=== PATIENT | female | born 1950 | race Caucasian/White ===

== ENCOUNTER → 2016-11-02 | Outpatient (CLI) | payer MEDICARE, OTHER ==
[~2016-11-02] MED LIST: AMARYL4 MG PO; AMBIEN 10MG10 M1 PO; AMBIEN 10MG10 MG PO; ASPIRIN E.C. 8181 MG PO; ASTELIN NASAL S34 ML NAS; ASTELIN137 MCG/AC NS; BRILINTA90 MG PO; CARDIZEM LA120 MG PO; CLARITIN; FISH OIL1000 MG PO; FLAX OIL1000 MG PO; IBU800 M1 PO; LASIX 20MG TABL20 MG PO; LIPITOR20 MG PO; LOPRESSOR 225 MG/TAB PO; LORTAB 5/500 501 TAB PO; MAVIK1 MG PO; MELATONIN5 M1 PO; MELATONIN5 MG; MEPEREDINE50 MG PO; MULTIPLE VITAMI1 CAP PO; MULTIVITAMIN FO1 CAP PO; NAPROSYN500 MG PO; NITROSTAT0.4 MG/TAB SL; PLAVIX 75MG TAB75 MG PO; PRAVACHOL 40MG40 MG PO; PRINIVIL2.5 MG PO; TARKA 4 MG-2401 TER PO; VESICARE5 MG PO; XANAX 0.5MG0.5 MG PO; XANAX0.25 MG PO; ZESTRIL 10MG10 MG PO; ZOFRAN 4MG T4 MG/TAB PO
== END ==
LOC: COL.RAD 08:07
DX: I70.1 Atherosclerosis of renal artery (principal); I70.209 Unspecified atherosclerosis of native arteries of extremities, unspecified extremity
CPT/HCPCS: Q9967

== ENCOUNTER → 2017-03-16 | Outpatient (REF) | LOC: ZLAB.WCH 18:15 | DX: Z01.89 Encounter for other specified special examinations (principal) ==

== ENCOUNTER 2022-09-03 02:22 | Inpatient (IN) | payer MEDICARE, OTHER ==
[~2022-09-03] VITALS: Ht 172.7 cm; Wt 88.1 kg
[2022-09-03] VITALS (862 sets, daily range): BP systolic 103–190; BP diastolic 46–84; PULSE 61–109; TEMP 97.1–99.6; O2SAT 74–100
[~2022-09-03 02:22] MED LIST changes: +BENADRYL25 M2 PO; +CALCIUM 600MG+D1 TAB PO; +CLARITIN 1010 MG/TAB PO; +CRESTOR5 MG PO; +FOSAMAX 70MG TA70 MG PO; +K2-4545 MCG PO; +PRINIVIL5 MG PO; +TYLENOL 500MG500 MG PO
[2022-09-03 03:17] LABS: ARTERIAL BLD GAS O2 SATURATION 98.6 % (92-100); ARTERIAL BLD GAS TCO2 CT 28.6; ARTERIAL BLOOD GAS BASE EXCESS 3.2 (-2-2); ARTERIAL BLOOD GAS HCO3 27.4 meq/L (22-26); ARTERIAL BLOOD GAS PCO2 40.2 mmHg (35-45); ARTERIAL BLOOD GAS pH 7.45 (7.35-7.45)
[2022-09-03 03:26] LABS: HEMATOCRIT 43.8 % (37.0-47.0); HEMOGLOBIN 14.4 g/dl (12.5-16.0); MEAN CELL VOLUME 98 fl (80.0-100.0); MEAN CORPUSCULAR HEMOGLOBIN 32 pg (27-31); MEAN CORPUSCULAR HGB CONC 33 g/dl (33.0-37.0); PLATELET COUNT 327 K/mm3 (130-400); RED BLOOD COUNT 4.49 M/mm3 (4.10-5.30); REDCELL DISTRIBUTION WIDTH-CV 12.7 % (11.5-14.5)
[2022-09-03 03:32] LABS: PROTHROMBIN TIME 11.5 SECONDS (9.7-12.8)
[2022-09-03 03:46] LABS: BAND 8 % (0-10); HYPOCHROMIA 1+; LYMPHOCYTE 14 % (20.0-51.0); NEUTROPHILS 77 % (42.0-75.2); PLATELET ESTIMATE NORMAL (NORMAL)
[2022-09-03 03:48] LABS: ALBUMIN 2.6 gm/dL (3.4-4.8); BILIRUBIN,TOTAL 0.3 mg/dL (0.2-1.2); CALCIUM 11.7 mg/dL (8.4-10.2); CREATININE, serum 0.8 mg/dL (0.57-1.11); PHOSPHOROUS 8.2 mg/dL (2.3-4.7); POTASSIUM 5.4 mmol/L (3.5-4.5); TOTAL PROTEIN 4.8 gm/dL (6.2-8.1)
[2022-09-03] MEDS ORDERED: NICODERM C21 MG/PATC TD (04:59)
[2022-09-03] MEDS ORDERED: LASIX 20MG TABL20 MG PO (04:59)
[2022-09-03 05:25] LABS: ARTERIAL BLD GAS O2 SATURATION 94.9 % (92-100); ARTERIAL BLOOD GAS HCO3 27.1 meq/L (22-26); ARTERIAL BLOOD GAS PCO2 29.3 mmHg (35-45); ARTERIAL BLOOD GAS pH 7.58 (7.35-7.45)
--- NOTE | 2022-09-03 05:30 | NUR ---
72 yo female admitted for further care and management of acute respiratory failure with additional concerns for sepsis of unclear etiology. ht 172.7 cm wt 86.4 kg SCr 0.8 with estimated CrCl >60 ml/min half life 11.4 hours Plan: Will give an initial loading dose of vancomycin 1750 mg x1 (20.3 mg/kg); followed by a maintenance regimen of vancomycin 1250 mg q12h to target a goal trough of 15-20 mcg/ml. Will follow patient's renal function, micro data, and vancomycin levels as indicated to assess for any necessary changes to regimen. Thank you for this dosing consult.
--- NOTE | 2022-09-03 05:44 | NUR ---
LEVOPHED DRIP INITIALLY AT 0.16 MCG/KG/MIN WHEN ARRIVED FROM ER. INITIAL BP 190/84 WITH THIS RATE. DECREASED PER TITRATIONS OF 0.03 DOWN TO 0.04 MCG/KG/MIN WITH FINAL BP OF 103/59 AT 0500.
[2022-09-03 05:52] LABS: MUCOUS Present (NOT PRESENT); SQUAMOUS EPITHELIAL 0-2 /hpf (0-10); URINE BACTERIA Rare /hpf (NONE SEEN)
[2022-09-03 05:54] LABS: URINE APPEARANCE Hazy (CLEAR/HAZY); URINE BLOOD 2+ (NEGATIVE); URINE COLOR Yellow (YELLOW); URINE GLUCOSE Negative (NEGATIVE); URINE KETONE TRACE (NEGATIVE); URINE NITRATE Negative (NEGATIVE); URINE PROTEIN(semi-quant) 3+ (NEGATIVE)
--- NOTE | 2022-09-03 07:00 | NUR ---
0700 INTRAOSSEOUS PLACEMENT ON LEFT PROXIMAL TIBIA. PLACED BY EMS. NO LONGER INDICATED DUE TO CENTRAL LINE PLACEMENT. INTRAOSSEOUS REMOVED. NO COMPLICATION. NEED INTACT. MINIMAL BLEEDING WITH PRESSURE DRESSING APPLIED.
--- NOTE | 2022-09-03 08:03 | NUR ---
0700 BEDSIDE REPORT GIVEN. PATIENT INTUBATED AND SEDATED. PATIENT HAS A RIGHT FEMORAL CENTRAL LINE AND ARTERIAL LINE WHICH HAS NOT BEEN SET UP. PATIENT ALSO HAS A SANDERS AND OG TUBE IN PLACE.
--- NOTE | 2022-09-03 08:38 | NUR ---
Patient currently intubated and sedated. SW attended rounding with patients RN, hospitalist and patients , Adolfo present at bedside. Patient recently diagnosed with cancer on 08/30. Adolfo verbalizes that the patient would not want to be on life support and would like to talk with his son about withdrawing care.
--- NOTE | 2022-09-03 09:07 | NUR ---
Per Adolfo, contact has been made with the patients children are currently in [place] and are 10 hours away. Adolfo states that they are getting their things together and are coming to [place]. Once here they are proceed with withdrawing care.
--- NOTE | 2022-09-03 09:15 | NUR ---
Dr. Thomas Saavedra making unit rounds. Patient's spouse indicated that patient would not want to be on a ventilator or in a vegetative state. Patient's spouse (Adolfo) made multiple phone calls to his stepchildren regarding their mother's condition. Discussed visiting guidelines; children are traveling from [place] & [facility] Adolfo states that he does not want his to suffer & struggle. May want to palliatively extubated at some point. Call to [facility] for referral of ventilated patient with potential withdraw of ventilator in near future. Instructed to call if patient's neuro status declines, GCS decreases, reflexes become absent or prior to withdrawing ventilator. [facility] #[id number].
[2022-09-03 09:59] LABS: CALCIUM 9.9 mg/dL (8.4-10.2); CREATININE, serum 0.67 mg/dL (0.57-1.11); POTASSIUM 3.5 mmol/L (3.5-4.5)
[2022-09-03 12:19] LABS: ARTERIAL BLD GAS O2 SATURATION 95.3 % (92-100); ARTERIAL BLD GAS TCO2 CT 27.9; ARTERIAL BLOOD GAS BASE EXCESS 4.3 (-2-2); ARTERIAL BLOOD GAS HCO3 26.8 meq/L (22-26); ARTERIAL BLOOD GAS PCO2 33.6 mmHg (35-45); ARTERIAL BLOOD GAS PO2 74.6 mmHg (80-100); ARTERIAL BLOOD GAS pH 7.52 (7.35-7.45)
--- NOTE | 2022-09-03 20:00 | NUR ---
Patient assessment completed. Patient is currently intubated with her at the bedside. Patients current ventilator settings are - AC mode, FiO2 45%, PEEP 5, Tidal volume 450. Patient tolerating ventilator. Patient shows minimal response. Patient slightly withdrawals from painful stimuli - such as turning. Vital signs are stable. Patient repositioned in bed and covered with a bed sheet. is still awaiting distant family to arrive.
--- NOTE | 2022-09-03 22:06 | NUR ---
Patient continue to shows minimal response. Decreased sedation to assess response level.
--- NOTE | 2022-09-03 22:22 | NUR ---
Patient's sedation increased due to patients heart rate increasing. Throughout shift patients heart rate was between 85-90. After sedation decrease heart rate began to go above 100bpm. Patient still showing minimal response to stimuli. Pupils are moving bilaterally, but movement is not purposeful. Patient continues to not follow any commands.
[2022-09-04] VITALS (1071 sets, daily range): BP systolic 128–153; BP diastolic 49–59; PULSE 79–98; TEMP 99.2–101; O2SAT 81–100
--- NOTE | 2022-09-04 00:08 | NUR ---
0000- Patient assessment completed. Patient continues to have minimal response. Pupils are fixed and do not react to light. Patient has ocular movements but are not purposeful and does not follow commands. Patient's gag reflex is absent upon suctioning.
--- NOTE | 2022-09-04 05:02 | NUR ---
This PUZZLE ASSEMBLER took report on pt at 0430.
[2022-09-04 05:13] LABS: BASO % 0.3 % (0.0-2.0); EOS % 0.1 % (0.0-4.0); GRAN # 12.7 K/mm3 (1.4-6.5); GRAN % 81.9 % (42.2-75.2); HEMOGLOBIN 12.5 g/dl (12.5-16.0); LYMPH # 1.5 K/mm3 (1.2-3.4); MEAN CELL VOLUME 96 fl (80.0-100.0); MEAN CORPUSCULAR HEMOGLOBIN 33 pg (27-31); MEAN CORPUSCULAR HGB CONC 34 g/dl (33.0-37.0); MEAN PLATELET VOLUME 10.4 fl (7.4-10.4); MONO # 1.1 K/mm3 (0.1-0.6); MONO % 6.9 % (1.7-9.3); PLATELET COUNT 324 K/mm3 (130-400); RED BLOOD COUNT 3.84 M/mm3 (4.10-5.30); REDCELL DISTRIBUTION WIDTH-CV 13.3 % (11.5-14.5)
[2022-09-04 05:14] LABS: HEMATOCRIT 36.7 % (37.0-47.0)
--- NOTE | 2022-09-04 05:23 | NUR ---
Sedation vacation attempted this shift. Patients mentation did not improve. Patient still only responding to painful stimuli - sternal rub, turning. Patient became tachycardic. Sedation increased again.
[2022-09-04 05:28] LABS: ALBUMIN 2.2 gm/dL (3.4-4.8); BILIRUBIN,TOTAL 0.2 mg/dL (0.2-1.2); CALCIUM 9.6 mg/dL (8.4-10.2); CREATININE, serum 0.67 mg/dL (0.57-1.11); MAGNESIUM 1.5 mg/dL (1.6-2.6); PHOSPHOROUS 3.8 mg/dL (2.3-4.7); TOTAL PROTEIN 4.6 gm/dL (6.2-8.1)
--- NOTE | 2022-09-04 05:28 | NUR ---
Patient had a bowel movement. When cleaning the patient the patient opened their eyes when turning. Patient would stare at the wall but would not respond to voice or follow commands. After, patient responded to sternal rub but again would not follow voice or commands.
[2022-09-04 05:31] LABS: POTASSIUM 2.9 mmol/L (3.5-4.5)
[2022-09-04 05:41] LABS: ARTERIAL BLD GAS TCO2 CT 29.1; ARTERIAL BLOOD GAS BASE EXCESS 3.2 (-2-2); ARTERIAL BLOOD GAS HCO3 27.8 meq/L (22-26); ARTERIAL BLOOD GAS PCO2 42.7 mmHg (35-45); ARTERIAL BLOOD GAS PO2 55.8 mmHg (80-100); ARTERIAL BLOOD GAS pH 7.43 (7.35-7.45)
--- NOTE | 2022-09-04 07:00 | NUR ---
BEDSIDE REPORT RECEIVED FROM SAMIA MINAYA. PT REMAINS INTUBATED AND SEDATED. NO S/S DISCOMFORT. PT'S AND CHILDREN AT THE BEDSIDE. BILATERAL SOFT WRIST RESTRAINTS IN PLACE. FC TO DEPENDENT DRAINAGE. 7.0 ETT 25CM AT TEETH. OG TUBE 65CM AT TEETH. RIGHT FEMORAL TLC IN PLACE WITH GTT'S INFUSING. PT'S FAMILY HAS NO QUESTIONS AT THIS TIME. PLAN TO MEET WITH DR. Marcia MAK THIS AM REGARDING PLAN OF CARE.
[2022-09-04 09:26] LABS: COLLECTION METHOD CATHETER
--- NOTE | 2022-09-04 09:30 | NUR ---
DR. Marcia MAK HAD DISCUSSIN WITH PATIENTS AND THREE SONS. DISCUSSED GOALS OF CARE AND PT'S CURRENT STATUS. FAMILY WOULD LIKE TO CONTINUE CARE UNTIL TUESDAY AND HAVE AN EEG DONE Tuesday. WOULD ALSO LIKE NEURO TO EVALUATE PT ON Tuesday WHEN AVAILABLE WELL. WILL MAKE FURTHER DECISIONS ON PLAN OF CARE AFTER THAT. FOR NOW CONTINUE ALL CARES BUT KEEP PATIENT'S CODE STATUS DNR. FAMILY'S QUESTIONS ANSWERED APPROPRIATELY AND VERBALIZE UNDERSTANDING.
--- NOTE | 2022-09-04 10:08 | NUR ---
TIME OUT COMPLETED FOR CENTRAL LINE PLACEMENT. RIGHT SUBCLAVIAN CENTRAL BEING PLACED DUE TO RIGHT FEMORAL CENTRAL LINE BLOOD CULTURES BEING POSITIVE. CONSENT RECEIVED FROM PT'S .
--- NOTE | 2022-09-04 11:18 | NUR ---
Initial contact; Patient unable to respond, however Photoengraving Machine Operator/Tender offered a silent prayer in her behalf asking "God's will be done, on earth as it is in heaven."
--- NOTE | 2022-09-04 11:30 | NUR ---
FEMORAL CENTRAL LINE REMOVED AT THIS TIME. PRESSURE HELD FOR 5 MINUTES. 4X4 AND TEGADERM PLACED OVER SITE. NO BLEEDING PRESENT AT THIS TIME.
--- NOTE | 2022-09-04 13:40 | NUR ---
Call placed to [facility] to update on neuro status of patient. Updated information given as per Dr. Saavedra's note. Call tx'd to patients nurse for further information
--- NOTE | 2022-09-04 17:05 | NUR ---
PROPOFOL AND FENTANYL PLACED IN STANDBY AT THIS TIME.
--- NOTE | 2022-09-04 20:00 | NUR ---
Patient assessment completed. Patient continues to show minimal response. Patient is on minimal sedation (view drip gtt flowsheet). Patient attempts to open eyes upon sternal rub. Patient lacks cough/gag reflex, corneal relfex, and pupil reaction to light. At this time patients ventilator settings are - AC mode, FiO2 50%, PEEP 8, rate of 16, and Tidal Volume 450. Patients vital signs are stable, extremities are becoming more edematous. Oral care provided and tube feeds are in progress.
--- NOTE | 2022-09-04 22:39 | NUR ---
Tube feed rate increased to 30mL/hr as ordered.
[2022-09-05] VITALS (1395 sets, daily range): BP systolic 121–185; BP diastolic 50–61; PULSE 76–101; TEMP 99–101.1; O2SAT 80–100
[2022-09-05 04:57] LABS: BASO % 0.2 % (0.0-2.0); EOS % 0.1 % (0.0-4.0); GRAN # 13.1 K/mm3 (1.4-6.5); GRAN % 83.4 % (42.2-75.2); LYMPH # 1.5 K/mm3 (1.2-3.4); LYMPH % 9.2 % (20.0-51.0); MEAN CELL VOLUME 99 fl (80.0-100.0); MEAN CORPUSCULAR HEMOGLOBIN 33 pg (27-31); MEAN CORPUSCULAR HGB CONC 33 g/dl (33.0-37.0); MONO % 6.3 % (1.7-9.3); PLATELET COUNT 283 K/mm3 (130-400); RED BLOOD COUNT 3.67 M/mm3 (4.10-5.30); REDCELL DISTRIBUTION WIDTH-CV 13.5 % (11.5-14.5)
[2022-09-05 05:02] LABS: HEMATOCRIT 36.4 % (37.0-47.0)
[2022-09-05 05:19] LABS: BILIRUBIN,TOTAL 0.3 mg/dL (0.2-1.2); CALCIUM 9.2 mg/dL (8.4-10.2); CREATININE, serum 0.58 mg/dL (0.57-1.11); MAGNESIUM 1.7 mg/dL (1.6-2.6); POTASSIUM 3.7 mmol/L (3.5-4.5); TOTAL PROTEIN 4.8 gm/dL (6.2-8.1)
--- NOTE | 2022-09-05 05:19 | NUR ---
Sedation vacation not attempted at this time. Patient is on minimal sedation and becomes hypertensive when decreased.
[2022-09-05 05:48] LABS: ARTERIAL BLD GAS O2 SATURATION 97.6 % (92-100); ARTERIAL BLOOD GAS BASE EXCESS 0.3 (-2-2); ARTERIAL BLOOD GAS HCO3 26.4 meq/L (22-26); ARTERIAL BLOOD GAS PCO2 48.4 mmHg (35-45); ARTERIAL BLOOD GAS PO2 106.2 mmHg (80-100); ARTERIAL BLOOD GAS pH 7.35 (7.35-7.45)
--- NOTE | 2022-09-05 07:37 | NUR ---
BEDSIDE REPORT RECEIVED FROM SAMIA MINAYA. PT REMAINS INTUBATED AND SEDATED. PT HAS NO RESPONSE TO PAINFUL STIMULI AND NO CORNEAL REFLEX. SEDATION PLACED IN STAND-BY AT THIS TIME. BILATERAL SOFT WRIST RESTRAINTS IN PLACE FOR LINE PROTECTION. ETT 25 CM AT TEETH. OG 65CM AT TEETH WITH TUBE FEEDS INFUSING. SANDERS CATHETER TO DEPENDENT DRAINAGE.
--- NOTE | 2022-09-05 11:44 | NUR ---
Dry Wall Finisher rounds: Patient on breathing support. Adolfo arrived while Dry Wall Finisher was reading from [facility]. Adolfo stated that the doctors and RN were ready to do assessment. Dry Wall Finisher prayed for Patient and for her family, especially Adolfo. Adolfo thanked Dry Wall Finisher for being there. Dry Wall Finisher encouraged Adolfo to ask for Dry Wall Finisher support later today if he wanted it.
--- NOTE | 2022-09-05 17:16 | NUR ---
PATIENT NOT ON ANY SEDATION AT THIS TIME.
--- NOTE | 2022-09-05 20:15 | NUR ---
Patient assessment completed. Patient remains on the ventilator, but sedation was discontinued during previous shift. Patient continues to be unresponsive to painful stimuli - sternal rubs, glucose checks, patients corneal reflexes are negative, pupils are unequal and sluggish to light. Patients gag/cough reflex is absent. Patient given lasix per [facility] orders. Patient turned and repositioned. Vital signs are stable.
[2022-09-06] VITALS (834 sets, daily range): BP systolic 142–196; BP diastolic 48–76; PULSE 67–89; TEMP 98.8–100.4; O2SAT 30–100
--- NOTE | 2022-09-06 00:14 | NUR ---
Patients 0000 blood pressure resulted at 191/76. This RN readjusted blood pressure cuff and retook pressure. New pressure resulted at 185/77. Pressure was taken in 2 minute intervals for 10 minutes witht he ending pressure 197/81. AZIZA Jj notified and told this RN to administer PM dose of metoprolol as patients blood pressure and heart rate are within parameters.
--- NOTE | 2022-09-06 01:24 | NUR ---
Patient given a complete bed bath. Patient continues to be unresponsive off sedation. Pupils continue to be unequal but had brisk reaction bilaterally. Patient does not respond to painful stimuli, corneal reflexes are negative. Patient is still hypertensive but blood pressures are trending down.
[2022-09-06 04:57] LABS: BASO % 0.2 % (0.0-2.0); EOS % 0.1 % (0.0-4.0); GRAN # 11.1 K/mm3 (1.4-6.5); GRAN % 83.4 % (42.2-75.2); HEMOGLOBIN 11.7 g/dl (12.5-16.0); LYMPH # 1.2 K/mm3 (1.2-3.4); LYMPH % 9.2 % (20.0-51.0); MEAN CELL VOLUME 98 fl (80.0-100.0); MEAN CORPUSCULAR HEMOGLOBIN 33 pg (27-31); MEAN CORPUSCULAR HGB CONC 33 g/dl (33.0-37.0); MEAN PLATELET VOLUME 10.2 fl (7.4-10.4); MONO # 0.8 K/mm3 (0.1-0.6); PLATELET COUNT 251 K/mm3 (130-400); REDCELL DISTRIBUTION WIDTH-CV 13.3 % (11.5-14.5)
[2022-09-06 05:00] LABS: HEMATOCRIT 35.2 % (37.0-47.0)
[2022-09-06 05:17] LABS: ALBUMIN 1.9 gm/dL (3.4-4.8); BILIRUBIN,TOTAL 0.3 mg/dL (0.2-1.2); CALCIUM 8.9 mg/dL (8.4-10.2); CREATININE, serum 0.57 mg/dL (0.57-1.11); MAGNESIUM 1.8 mg/dL (1.6-2.6); PHOSPHOROUS 2.6 mg/dL (2.3-4.7); POTASSIUM 3.8 mmol/L (3.5-4.5)
--- NOTE | 2022-09-06 05:18 | NUR ---
PT DOES NOT MEET REQ TO [facility]
--- NOTE | 2022-09-06 06:42 | NUR ---
This RN attempted to contact for neurology consult. No answer received, voicemail left.
--- NOTE | 2022-09-06 08:15 | NUR ---
Received report from SAMIA Inman; patient is currently resting in bed on ventilator with no sedation running. No other fluids or meds are running through her central right subclavian; patient has marsh catheter, ET, and OG tubes in place; no other lines or tubes are in place at this time. Patient's vital signs are within normal limits this morning.
--- NOTE | 2022-09-06 13:35 | NUR ---
Patients family at bedside. Family would like to speak with on EEG results prior to withdrawing care.
--- NOTE | 2022-09-06 13:45 | NUR ---
Patient extubated today at 1342, with RT Virgie present with his student, SAMIA Terrazas, this RN, and my student present. Patient was extubated due to family withdrawing care. Comfort care meds were given prior to extubation; patient's O2 sats dropped immediately after extubation and patient's vital signs became unstable. Patient's family arrived in the room, along with Pastor Bui.
--- NOTE | 2022-09-06 13:48 | NUR ---
PT EXTUBATED PALLIATIVELY. FAMILY AT BEDSIDE.
--- NOTE | 2022-09-06 14:05 | NUR ---
Patient passed at 1357 with family at bedside. Patient cannot be released to home as [facility] has not cleared her; will keep eyes lubricated and HOB at 30 degrees.
--- NOTE | 2022-09-06 14:07 | NUR ---
[facility] notified of patient , patient not a candidate for tissue or bone. Family has chosen [facility] home. We may not release until [facility] clears the patient.
--- NOTE | 2022-09-06 14:44 | NUR ---
Patient . Family at bedside. home chosen by family is [facility]. House Supervior present.
--- NOTE | 2022-09-06 15:13 | NUR ---
SAMIA Grover on phone with [facility].
== END 2022-09-07 00:25 | disposition expired ==
LOC: COL.ER 02:22 → ICU 02:59
PROVIDERS: Internal Medicine Pulmonary Disease; Nurse Practitioner Family; ADMIT Internal Medicine
PROC: 5A1945Z Respiratory Ventilation, 24-96 Consecutive Hours (ICD-10-PCS; principal; 2022-09-03)
DX: I46.9 Cardiac arrest, cause unspecified (principal); J98.59 Other diseases of mediastinum, not elsewhere classified; I21.4 Non-ST elevation (NSTEMI) myocardial infarction; E87.20 Acidosis, unspecified; I10 Essential (primary) hypertension; I48.91 Unspecified atrial fibrillation; E83.52 Hypercalcemia; E87.5 Hyperkalemia; Z66 Do not resuscitate; E83.39 Other disorders of phosphorus metabolism; J44.9 Chronic obstructive pulmonary disease, unspecified; I47.20 Ventricular tachycardia, unspecified; M81.0 Age-related osteoporosis without current pathological fracture; R74.01 Elevation of levels of liver transaminase levels; I25.2 Old myocardial infarction; I45.10 Unspecified right bundle-branch block; R73.9 Hyperglycemia, unspecified; G47.00 Insomnia, unspecified; E78.5 Hyperlipidemia, unspecified; F17.210 Nicotine dependence, cigarettes, uncomplicated; Z79.82 Long term (current) use of aspirin; Z79.02 Long term (current) use of antithrombotics/antiplatelets; Z95.5 Presence of coronary angioplasty implant and graft; Z85.3 Personal history of malignant neoplasm of breast; Z92.3 Personal history of irradiation; Z90.49 Acquired absence of other specified parts of digestive tract; Z88.5 Allergy status to narcotic agent
CPT/HCPCS: A4314; C1751; C9113; J0171; J1650; J1815; J1940; J2060; J2250; J2270; J2543; J2704; J3010; J3370; J3475; J3480; J7030; J7040; J7050; J7060; J7120; Q9967